=== PATIENT | female | born 1980 | race Caucasian/White ===

== ENCOUNTER 2024-01-31 05:15 | Inpatient (IN) | payer OTHER ==
[~2024-01-31] VITALS: Ht 157.5 cm; Wt 83.5 kg
[2024-01-31] MEDS ORDERED: CALDOLOR 800MG+NS 250ML 250 ML IV PRN (06:30)
[2024-01-31] MEDS ORDERED: CEFAZOLIN SODIUM 2 GM VIAL IVPB PRN (06:30)
[2024-01-31] MEDS: LACTATED RINGERS 1000ML 1,000 ML IV SCH (06:30)
[2024-01-31 07:03] LABS: HEMATOCRIT 34.9 % (36-48); MEAN CORPUSCULAR HEMOGLOBIN 33.2 pg (27.0-33.0); MEAN CORPUSCULAR HGB CONC 34.7 g/dL (32.0-36.0); MEAN CORPUSCULAR VOLUME 95.9 fL (79-99); RED BLOOD CELL COUNT(AUTO) 3.64 MIL/uL (4.00-5.50); RED CELL DISTRIBUTION WIDTH 14.2 % (11.0-15.5); WHITE BLOOD COUNT (AUTO) 7.9 K/uL (4.8-10.8)
[2024-01-31] MEDS: MORPHINE PF 100MG/10ML AMP IV ONE (07:19)
[2024-01-31] MEDS: ONDANSETRON 4MG INJ ONE (07:19)
[2024-01-31] MEDS: OXYTOCIN 10 UNIT/1ML 10ML VIAL ONE (07:19)
[2024-01-31] MEDS: DEXAMETHASONE SOD PHOSPHATE 10MG/ML 1ML VIAL ONE (07:19)
[2024-01-31] MEDS: FENTANYL CITRATE PF 50 MCG/1 ML 2ML VIAL ONE (07:20)
[2024-01-31 07:30] VITALS: BP 111/62; PULSE 66; RESP 18
[2024-01-31 07:41] LABS: HIV 1&2 ANTIBODY Non-Reactive (Negative)
[2024-01-31 07:42] LABS: HIV-1 p24 Antigen Non-Reactive (Negative)
[2024-01-31 07:51] LABS: APPEARANCE,URINE CLEAR (CLEAR); BILIRUBIN,URINE NEGATIVE (NEGATIVE); COLOR,URINE LIGHT-YELLOW (YELLOW); GLUCOSE, URINE (UA) NEGATIVE (NEGATIVE); KETONES,URINE NEGATIVE (NEGATIVE); LEUKOCYTE ESTERASE ,URINE NEGATIVE Leu/uL (NEGATIVE); NITRATE,URINE NEGATIVE (NEGATIVE); OCCULT BLOOD,URINE NEGATIVE (NEGATIVE); PH,URINE 6.5 (5.0-8.0); PROTEIN,URINE NEGATIVE (NEGATIVE); UROBILINOGEN,URINE 0.2 mg/dL (0.2-1.0)
[2024-01-31] MEDS: CEFAZOLIN SODIUM 2 GM VIAL IVPB ONE (07:56)
[2024-01-31 07:58] LABS: ADD UA MICROSCOPIC NO
[2024-01-31] MEDS ORDERED: 0.9%NACL 10ML VIAL IVP PRN (09:00)
[2024-01-31] MEDS ORDERED: OXYTOCIN-LR 30 UNITS/500ML 500 ML IV PRN (09:00)
[2024-01-31 10:50] VITALS: BP 115/65; PULSE 71; RESP 18
[2024-01-31] MEDS: ONDANSETRON 4MG INJ IVP PRN (11:31)
[2024-01-31] MEDS: LORATADINE 10 MG TABLET PO PRN (11:31)
[2024-01-31 12:00] VITALS: BP 126/78; PULSE 67; RESP 18
[2024-01-31] MEDS: HYDROCODONE/ACETAMINOPHEN 5/325 MG TAB PO PRN (12:07)
[2024-01-31 12:26] LABS: RAPID PLASMA REAGIN NONREACTIVE (NONREACTIVE)
[2024-01-31] MEDS: DiphenhydrAMINE HCL 50 MG/ML VIAL IV PRN (13:04)
[2024-01-31] MEDS: DEXTROSE 5 %-0.45 % NACL 1,000 ML IV PRN (14:19)
[2024-01-31] MEDS ORDERED: METF-446 PO (15:35)
[2024-01-31] MEDS ORDERED: PREN-134 PO (15:35)
[2024-01-31] MEDS ORDERED: FERR-82 PO (15:35)
[2024-01-31 16:00] VITALS: BP 111/72; PULSE 63; RESP 18
[2024-01-31] MEDS: CALDOLOR 800MG+NS 250ML 250 ML IV SCH (17:35)
[2024-01-31] MEDS: DIPH,PERTUSS(ACELL),TET VAC/PF 0.5 ML VIAL IM ONE (19:31)
[2024-01-31 20:00] VITALS: BP 125/76; PULSE 91; RESP 20
[2024-01-31] MEDS: PROMETHAZINE HCL 25 MG/ML 1ML AMPULE IM PRN (21:37)
[2024-01-31] MEDS: MEPERIDINE-PF 75 MG/ML SYG IM PRN (21:37)
[2024-02-01] VITALS (7 sets, daily range): BP systolic 95–133; BP diastolic 59–85; PULSE 62–79; RESP 18
[2024-02-01 06:53] LABS: HEMATOCRIT 33.7 % (36-48); MEAN CORPUSCULAR HEMOGLOBIN 33.2 pg (27.0-33.0); MEAN CORPUSCULAR HGB CONC 33.5 g/dL (32.0-36.0); MEAN CORPUSCULAR VOLUME 99.1 fL (79-99); RED BLOOD CELL COUNT(AUTO) 3.4 MIL/uL (4.00-5.50); RED CELL DISTRIBUTION WIDTH 14.2 % (11.0-15.5); WHITE BLOOD COUNT (AUTO) 11.7 K/uL (4.8-10.8)
[2024-02-01] MEDS ORDERED: IBUPROFEN 600 MG TABLET PO PRN (07:30)
[2024-02-01] MEDS ORDERED: ACETAMINOPHEN 500 MG TABLET PO PRN (07:30)
[2024-02-01] MEDS ORDERED: LANOLIN 30GM OINTMENT TP PRN (07:30)
[2024-02-01] MEDS: IBUPROFEN 800 MG TAB PO SCH (09:00)
[2024-02-01] MEDS: SIMETHICONE 80 MG TAB.CHEW PO PRN (09:14)
[2024-02-01] MEDS: DOCUSATE SODIUM 100 MG CAP PO SCH (09:14)
[2024-02-01] MEDS: ACETAMINOPHEN WITH CODEINE 1 TAB TAB PO PRN (10:51)
[2024-02-01] MEDS: BISACODYL 10 MG SUPP.RECT RC PRN (18:39)
[2024-02-01] MEDS: HYDROCODONE/ACETAMINOPHEN 5/325 MG TAB PO PRN (18:39)
[2024-02-02] VITALS (8 sets, daily range): BP systolic 113–142; BP diastolic 69–78; PULSE 64–89; RESP 18–20; TEMP 98.2
[2024-02-03 03:30] VITALS: BP 125/71; PULSE 64; RESP 18
[2024-02-03 07:35] VITALS: BP 123/77; PULSE 68; RESP 20
[2024-02-03 11:20] VITALS: BP 129/79; PULSE 67; RESP 20
== END 2024-02-03 13:10 | disposition home or self-care (01) | DRG 788 ==
LOC: LDH 05:15 → WSH 09:17
PROVIDERS: ADMIT Obstetrics & Gynecology; ATTEND Obstetrics & Gynecology
PROC: 10D00Z1 Extraction of Products of Conception, Low, Open Approach (ICD-10-PCS; principal; 2024-01-31 07:30)
DX: O32.2XX0 Maternal care for transverse and oblique lie, not applicable or unspecified (principal); O34.211 Maternal care for low transverse scar from previous cesarean delivery; Z37.0 Single live birth; Z3A.38 38 weeks gestation of pregnancy
CPT/HCPCS: 36415; 59510; 81003; 85027; 86592; 86701; 86850; 86900; 86901; 87340; 87390; 90715; A4344; G0378; J1100; J1200; J1741; J2175; J2274; J2405; J2550; J2590; J3010; J7042; J7120; A4248; A4510; C1765; J0690